=== PATIENT | female | born 1995 | race Caucasian/White ===

== ENCOUNTER 2019-07-01 15:12 | Emergency (ER) | payer OTHER ==
--- NOTE | 2019-07-01 15:36 | ER Document Report ---
ED Medical Screen (RME) - General Chief Complaint: Abdominal Pain Stated Complaint: ABDOMINAL PAIN Time Seen by Provider: 07/01/19 15:28 Notes: Patient is a 24-year-old female who presents emergency department with a chief complaint of epigastric pain. Patient reports this is been present for about 6 days. Patient reports she was seen at [facility] twice over the past week and diagnosed with gastritis and acid reflux. Patient was placed on omeprazole which she has been taking since Wednesday. Patient reports it feels like a sharp burning type discomfort in the upper abdomen. Patient reports that this is worse when she attempts to eat or drink. She states that they did do an ultrasound while at [facility] and was told it was not her gallbladder. Patient reports she has had about 3 episodes of diarrhea each day for the past 6 days without noticeable blood. Patient reports she did start her last menstrual cycle on Wednesday. Patient states she was given a GI cocktail while at [facility] but states this only mass the pain briefly. Patient denies vomiting. TRAVEL OUTSIDE OF THE [place] IN LAST 30 DAYS: No - Related Data Allergies/Adverse Reactions: No Known Allergies Allergy (Verified 07/01/19 15:26) Past Medical History - Social History Chew tobacco use (# tins/day): No Frequency of alcohol use: None Drug Abuse: None Physical Exam - Vital signs Vitals: Temp Pulse BP Pulse Ox 98.6 F 80 125/79 99 07/01/19 15:16 07/01/19 15:16 07/01/19 15:16 07/01/19 15:16 - Abdominal Inspection: Normal Distension: No distension Tenderness: Tender - generalized upper abdominal tenderness Course - Re-evaluation Re-evalutation: 07/01/19 15:36 I have greeted and performed a rapid initial assessment of this patient. A comprehensive ED assessment and evaluation of the patient, analysis of test results and completion of the medical decision making process will be conducted by additional ED providers. - Vital Signs Vital signs: Temp Pulse Resp BP Pulse Ox 98.6 F 80 125/79 99 07/01/19 15:26 07/01/19 15:16 07/01/19 15:16 07/01/19 15:26
[2019-07-01 15:53] LABS: ABSOLUTE BASOPHILS # (AUTO) 0.1 10^3/uL (0.0-0.2); ABSOLUTE EOSINOPHILS # (AUTO) 0.2 10^3/uL (0.0-0.6); ABSOLUTE MONOCYTES (AUTO) 0.7 10^3/uL (0.1-1.4); EOSINOPHILS % (AUTO) 2.4 % (0-6); HEMATOCRIT 38.5 % (36.0-47.0); HEMOGLOBIN 12.8 g/dL (12.0-15.5); LYMPHOCYTES % (AUTO) 28.6 % (13-45); MEAN CORPUSCULAR HEMOGLOBIN 27.5 pg (27.0-33.4); MEAN CORPUSCULAR HGB CONC 33.4 g/dL (32.0-36.0); MEAN CORPUSCULAR VOLUME 82 fl (80-97); MONOCYTES % (AUTO) 10.1 % (3-13); PLATELET COUNT 260 10^3/uL (150-450); RED BLOOD COUNT 4.67 10^6/uL (3.72-5.28); RED CELL DISTRIBUTION WIDTH 14.1 % (11.5-14.0); SEGMENTED NEUTROPHILS % (AUTO) 57.9 % (42-78); TOTAL CELLS COUNTED % (AUTO) 100 %; WHITE BLOOD COUNT 6.9 10^3/uL (4.0-10.5)
--- NOTE | 2019-07-01 16:00 | ER Document Report ---
ED General - General Chief Complaint: Abdominal Pain Stated Complaint: ABDOMINAL PAIN Time Seen by Provider: 07/01/19 15:28 Mode of Arrival: Ambulatory Information source: Patient Notes: This 24-year-old female presents emergency department with complaints of epigastric right upper quad abdominal pain for the past 6 days. Reports started last Wednesday. She does not remember what she ate the night before. She reports she has had diarrhea at least 3 times a day for the past 6 days. Denies fever. Reports she vomited one time this week. Patient reports she has been evaluated at the [facility] emergency department twice this week. Told she had gastritis or reflux. She was prescribed Prilosec. Patient reports history of lactose intolerance. Patient reports she is been under a lot of stress lately. Denies taking ibuprofen or any NSAIDs. Denies fever. Last menstrual period was last week. Denies pain with void. Reports she has not been eating that much this week. She reports she does not eat spicy or fatty foods. TRAVEL OUTSIDE OF THE [place] IN LAST 30 DAYS: No - HPI Onset: Last week Onset/Duration: Sudden, Persistent Associated symptoms: Diarrhea, Nausea, Vomiting Exacerbated by: Denies Relieved by: Denies Similar symptoms previously: Yes Recently seen / treated by doctor: Yes - Related Data Allergies/Adverse Reactions: No Known Allergies Allergy (Verified 07/01/19 15:26) Past Medical History - General Information source: Patient Last Menstrual Period: Last week - Social History Smoking Status: Current Every Day Smoker Chew tobacco use (# tins/day): No Frequency of alcohol use: None Drug Abuse: None Lives with: Family Family History: None Patient has suicidal ideation: No Patient has homicidal ideation: No - Medical History Medical History: Negative Surgical Hx: Negative Review of Systems - Review of Systems Notes: Review HPI for review of systems., All other systems negative Physical Exam - Vital signs Vitals: Temp Pulse BP Pulse Ox 98.6 F 80 125/79 99 07/01/19 15:16 07/01/19 15:16 07/01/19 15:16 07/01/19 15:16 - Notes Notes: PHYSICAL EXAMINATION: GENERAL: Well-appearing and in no acute distress HEAD: Atraumatic, normocephalic. EYES: Pupils equal round and reactive to light, extraocular movements intact, sclera anicteric, conjunctiva are normal. ENT: nares patent, oropharynx clear without exudates. Moist mucous membranes. NECK: Normal range of motion, supple without lymphadenopathy LUNGS: CTAB and equal. No wheezes rales or rhonchi. HEART: Regular rate and rhythm without murmurs ABDOMEN: Soft, Epigastric, right upper quad tenderness. No guarding, no rebound EXTREMITIES: Normal range of motion, NEUROLOGICAL: Cranial nerves grossly intact. PSYCH: Normal mood, normal affect. SKIN: Warm, Dry, normal turgor, no rashes or lesions noted Course - Re-evaluation Re-evalutation: 07/01/19 17:33 24-year-old female with history of lactose intolerance complaints epigastric right upper quadrant pain for the past 6 days. She is been evaluated at the [facility] ER twice this week. She was instructed she had gastritis or reflux. Patient presents here because she still irritated. She reports she is taking her Prilosec as prescribed. Reports diarrhea 3 times a day for the past 6 days denies fever and vomiting. She does report she vomited one time last week when it started. Labs unremarkable. Patient was instructed on possible ulcer or need for further evaluation of the gallbladder to include HIDA scan. She was instructed on [id number] Maalox and clear liquids advance as tolerated, low fat diet. She was instructed its important to follow-up with her primary care provider via [facility] for referral to GI as indicated. She verbalized understanding to all instructions. 07/01/19 15:40 07/01/19 15:40 MCV 82 fl (80-97) 07/01/19 15:40 MCH 27.5 pg (27.0-33.4) 07/01/19 15:40 MCHC 33.4 g/dL (32.0-36.0) 07/01/19 15:40 RDW 14.1 % (11.5-14.0) H 07/01/19 15:40 Seg Neutrophils % 57.9 % (42-78) 07/01/19 15:40 Chloride 106 mmol/L (98-107) 07/01/19 15:40 Carbon Dioxide 27 mmol/L (22-30) 07/01/19 15:40 Anion Gap 9 (5-19) 07/01/19 15:40 Est GFR ( Amer) > 60 (>60) 07/01/19 15:40 Glucose 88 mg/dL (75-110) 07/01/19 15:40 Calcium 9.5 mg/dL (8.4-10.2) 07/01/19 15:40 Total Bilirubin 0.4 mg/dL (0.2-1.3) 07/01/19 15:40 AST 23 U/L (14-36) 07/01/19 15:40 Alkaline Phosphatase 71 U/L (38-126) 07/01/19 15:40 Total Protein 7.7 g/dL (6.3-8.2) 07/01/19 15:40 Albumin 4.3 g/dL (3.5-5.0) 07/01/19 15:40 Lipase 63.9 U/L (23-300) 07/01/19 15:40 Urine Color YELLOW 07/01/19 15:40 Urine Appearance SLIGHTLY-CLOUDY 07/01/19 15:40 Urine pH 6.0 (5.0-9.0) 07/01/19 15:40 Ur Specific [place] 1.025 07/01/19 15:40 Urine Protein NEGATIVE mg/dL (NEGATIVE) 07/01/19 15:40 Urine Glucose (UA) NEGATIVE mg/dL (NEGATIVE) 07/01/19 15:40 Urine Ketones NEGATIVE mg/dL (NEGATIVE) 07/01/19 15:40 Urine Blood SMALL (NEGATIVE) H 07/01/19 15:40 Urine Nitrite NEGATIVE (NEGATIVE) 07/01/19 15:40 Ur Leukocyte Esterase NEGATIVE (NEGATIVE) 07/01/19 15:40 Urine WBC (Auto) 3 /HPF 07/01/19 15:40 Urine RBC (Auto) 4 /HPF 07/01/19 15:40 - Vital Signs Vital signs: Temp Pulse Resp BP Pulse Ox 98.0 F 86 16 112/75 98 07/01/19 17:55 07/01/19 17:55 07/01/19 17:55 07/01/19 17:55 07/01/19 17:55 - Laboratory Result Diagrams: 07/01/19 15:40 07/01/19 15:40 Laboratory results interpreted by me: 07/01/19 07/01/19 15:40 15:40 RDW 14.1 H Urine Blood SMALL H Discharge - Discharge Clinical Impression: Epigastric abdominal pain Condition: Stable Disposition: HOME, SELF-CARE Instructions: Evaluation of Upper Abdominal Pain ([facility]), Gastroenterology, Low- Fat Diet ([facility]) Additional Instructions: *You have been evaluated for abdominal pain *Take the medication as prescribed by the provider at [facility] *Follow up with a primary care provider within one week for recheck and referral to GI as indicated *Return to ED for worsening condition, changes, needs *Return to ED if not better in 24 hours Monitor your blood pressure. Your blood pressure was elevated today. This may be because you were anxious, in pain or because you need medication. It is important to follow up with your primary care provider for full evaluation. Forms: Elevated Blood Pressure
[2019-07-01 16:01] LABS: APPEARANCE,URINE SLIGHTLY-CLOUDY; BILIRUBIN,URINE NEGATIVE (NEGATIVE); COLOR,URINE YELLOW; GLUCOSE, URINE NEGATIVE (NEGATIVE); KETONES,URINE NEGATIVE (NEGATIVE); LEUKOCYTE ESTERASE,URINE NEGATIVE (NEGATIVE); NITRITE,URINE NEGATIVE (NEGATIVE); PROTEIN,URINE NEGATIVE (NEGATIVE); URINE SPECIFIC GRAVITY 1.025; UROBILINOGEN,URINE NEGATIVE mg/dL (<2.0)
[2019-07-01 16:17] LABS: ALBUMIN 4.3 g/dL (3.5-5.0); ALKALINE PHOSPHATASE 71 U/L (38-126); ANION GAP 9 (5-19); ASPARTATE AMINO TRANSFERASE 23 U/L (14-36); BILIRUBIN,DIRECT 0.1 mg/dL (0.0-0.4); BILIRUBIN,TOTAL 0.4 mg/dL (0.2-1.3); BLOOD UREA NITROGEN 13 mg/dL (7-20); CALCIUM 9.5 mg/dL (8.4-10.2); CARBON DIOXIDE 27 mmol/L (22-30); CHLORIDE 106 mmol/L (98-107); GLUCOSE 88 mg/dL (75-110); POTASSIUM 4.4 mmol/L (3.6-5.0); TOTAL PROTEIN 7.7 g/dL (6.3-8.2)
[2019-07-01 17:57] VITALS: BP 112/75
== END 2019-07-01 17:55 | disposition home or self-care (01) ==
LOC: ER 15:12
DX: R10.13 Epigastric pain (principal); R10.11 Right upper quadrant pain; R19.7 Diarrhea, unspecified; R11.2 Nausea with vomiting, unspecified
CPT/HCPCS: 36415; 80053; 81001; 81025; 83690; 85025; 99284